=== PATIENT | female | born 1990 | race Caucasian/White ===

== ENCOUNTER → 2023-09-06 14:57 | Outpatient (REF) | payer OTHER, SELFPAY | LOC: PNTC 14:57 | PROVIDERS: ATTENDING PHYSICIAN Nurse Practitioner Women's Health | DX: Z36.87 Encounter for antenatal screening for uncertain dates (principal) | CPT/HCPCS: 76801; 76817 ==

== ENCOUNTER 2023-09-17 16:01 | Emergency (ER) | payer OTHER, SELFPAY ==
[2023-09-17 16:06] VITALS: BP 120/81
[2023-09-17 16:38] LABS: % Basophils 0.7 % (0-2); % Eosinophils 0.3 % (0-6); % Immature Granulocytes 0.3 % (0-0.5); % Lymphocytes 27.5 % (20.5-51.1); % Monocytes 6.6 % (1.7-9.3); % Neutrophils 64.6 % (42.2-75.2); Absolute Basophils 0.1 10^3/uL (0-0.2); Absolute Monocytes 0.5 10^3/uL (0.1-0.6); Absolute Neutrophils 4.8 10^3/uL (1.4-6.5); Hemoglobin 12.8 g/dL (12.0-16.0); Mean Corp Hgb Conc. 34.6 g/dL (33.0-37.0); Mean Corpuscular Hgb 28.4 pg (27.0-31.0); Mean Corpuscular Volume 82.2 fL (81.0-99.0); Mean Platelet Volume 8.5 fL (7.4-10.4); Nucleated Red Blood Cells % 0 %; Platelet Count 295 10^3/uL (130-400); Red Cell Dist. Width 12.3 % (11.5-14.5); White Blood Cell Count 7.4 10^3/uL (4.8-10.8)
[2023-09-17 16:39] LABS: Urine Albumin Negative (Neg - Trace); Urine Bilirubin Negative (Negative); Urine Character Clear (Clear); Urine Color Yellow; Urine Glucose Negative (Negative); Urine Ketone Negative (Negative); Urine Leukocyte Trace (Negative); Urine Nitrite Negative (Negative); Urine Occult Blood Negative (Negative); Urine Urobilinogen Negative (Neg - 1+); Urine pH 6.5 (5.0-9.0)
[2023-09-17 16:45] LABS: Erythrocyte Sed Rate 18 mm/hour (0-20)
[2023-09-17 16:53] LABS: ALT (SGPT) < 10 U/L (0-35); AST (SGOT) 21 U/L (14-36); Albumin 4.7 g/dl (3.5-5.0); Alkaline Phosphatase 51 U/L (38-126); Blood Urea Nitrogen 6 mg/dl (7-17); Calcium 10.4 mg/dl (8.4-10.2); Carbon Dioxide 23 mmol/L (22-30); Chloride 102 mmol/L (98-107); Glucose 85 mg/dl (70-99); Potassium 4.1 mmol/L (3.5-5.1); Sodium 133 mmol/L (135-145); Total Bilirubin 0.6 mg/dl (0.2-1.3); Total Protein 7.6 g/dl (6.3-8.2); eGFR > 60.00
[2023-09-17 16:53] LABS: Urine Bacteria Few (Negative); Urine Red Blood Cell None Seen /HPF (0-2); Urine White Cell 0-2 /HPF (0-5)
[2023-09-17 16:55] LABS: C-Reactive Protein < 5.00 mg/L (0.0-10.00)
--- NOTE | 2023-09-17 18:42 | ED.GENMED ---
History of Present Illness
General
Chief Complaint: Fever
Source: patient
Exam Limitations: none
Time Seen by Provider: 09/17/23 18:05
Travel History
Have you had any contact with someone who has COVID-19?: No
Do you have any symptoms of coronavirus? Fever > 100 degrees, chills, cough, shortness of breath, sore throat, loss of taste or smell, muscle aches, or headache?: No
History of Present Illness
History of Present Illness:
This is a 32 year old female that comes in with c/o fever. States that she has had a fever since Last Sunday. States that it is between 99-100.5. States that it is just not going away. States that she went to and they placed her on Amoxicillin.
States that she finished this and the fever continued. Patient called her INDUSTRIAL ECOLOGY TECHNICIAN yesterday and she was started on Keflex. States that she has had three doses. State that she is still running a fever today of 100.1. States that she is 8 week
and has had some nausea. States that she also had a headache. Denies any chills, chest pain, SOB, abd pain, Vomiting, diarrhea, dizziness, urinary burning.
Past History
Past History
ED Past Medical History: Asthma, Hypothyroidism, Psychiatric (Anxiety) and Other (IBS/Colitis. Migraines, POTS, anemia, Vicente-Danlos, eczema, Lupus, Lupus enteritis)
ED Past Surgical History: None
Patient has exhibited threatening behavior?: No
PSI?: No
Social History
Tobacco: Non-smoker
Alcohol: None
Drug: None
Personal:
Living: with family
Employment: Employed ([employer])
Family History
Family History: Other (Gallbladder disease); Negative Early CAD
Review of Systems
Review of Systems
All Other Systems: ROS reviewed and negative except as documented in HPI and ROS
Constitutional: Reports fever; Denies chills
EENT: Reports no symptoms
Respiratory: Reports no symptoms; Denies cough or trouble breathing
Cardiac: Reports no symptoms; Denies chest pain
ABD/GI: Reports nausea; Denies abdominal pain, vomiting or diarrhea
: Reports no symptoms; Denies dysuria, frequency or urgency
Musculoskeletal: Reports no symptoms
Skin: Reports no symptoms
Neurological: Reports headache; Denies dizzy
Psychiatric: Reports no symptoms
Phy Exam
General Physical Exam
General Presentation: well appearing and no apparent distress
General age: appears stated age
General Skin: warm and dry
General Habitus: normal
General Mental: alert
General Hydration: appears well hydrated
ENT Exam
ENT Exam: TM's normal, pharynx normal and neck supple
Eye Exam
Eye Exam: EOMI
Cardiovascular Exam
Cardiovascular Exam: regular rate/rhythm, no edema, no murmur and normal peripheral pulses
Pulmonary Exam
Pulmonary Exam: lungs clear, no respiratory distress, no rales, chest non tender, no crackles, no rhonchi, no wheezing and no cough
Gastrointestinal Exam
Gastrointestinal Exam: normal bowel sounds, non tender, soft, no organomegaly, no pulsatile mass and non distended
Musculoskeletal Exam
Musculoskeletal Exam: full ROM and no edema
Skin Exam
Skin Exam: normal color, warm/dry, no rash and no petechia
Psychiatric Exam
Psychiatric Exam: normal mood/affect
Course
Orders/Labs/Results
Orders:
Orders
09/17/23 16:18
Beta HCG Quantitative Urgent
Is this a screen?: No
CRP [C-Reactive Protein] Urgent
Complete Blood Count/With Diff Urgent
Comprehensive Metabolic Panel Urgent
Erythrocyte Sed Rate Urgent
Blood Culture Urgent
[facility] Source: Blood/Venous
Specimen Description:
09/17/23 16:23
UA Reflex to Culture [Urinalysis Reflex To Culture] Urgent
Date Specimen was Collected: 09/17/23
Time Specimen was Collected: 16:10
Urine Microscopic Reflex Cult Urgent
09/17/23 18:41
0.9% Sodium Chloride 1000 ml [Nss] 1,000 ml IV BOLUS
09/17/23 18:56
Lactic Acid Urgent
Blood Culture Q30M
[facility] Source: Blood/Venous
Specimen Description:
09/17/23 19:18
Acetaminophen [Tylenol] 650 mg .ROUTE .STK-MED ONE
09/17/23 19:21
Acetaminophen [Tylenol] 650 mg PO NOW STA
Abnormal Lab Results
09/17/23 09/17/23
16:18 16:23
Sodium 133 L mmol/L
(135-145)
BUN 6 L mg/dl
(7-17)
Creatinine 0.5 L mg/dL
(0.6-1.0)
Calcium 10.4 H mg/dl
(8.4-10.2)
Leukocyte Esterase Rfl Trace A
(Negative)
Urine Bacteria (Reflex) Few A
(Negative)
09/17/23 16:18
09/17/23 16:18
Sodium slightly low. Calcium slightly elevated. Urine negative for infection. CRP <5.0, HCG 812912.00, Lactic acid normal at 0.7
Vital Signs
Initial and Last Documented VS:
Initial Vital Signs
Temp Pulse Resp BP Pulse Ox
99.4 F 75 16 120/81 99
09/17/23 16:06 09/17/23 16:06 09/17/23 16:06 09/17/23 16:06 09/17/23 16:06
Last Documented Vital Signs
Temp Pulse Resp BP Pulse Ox
99.4 F 75 16 120/81 99
09/17/23 16:06 09/17/23 16:06 09/17/23 16:06 09/17/23 16:06 09/17/23 16:06
MDM/Problems Addressed
Differential Diagnosis Includes:
Viral syndrome. Lupus flare
MDM/Problems Addressed:
This is a 32 year old female that comes in with c/o fever since last Sunday. States that it is low between 99-100.5. Patient was seen at and given Amoxicillin. States that her fever continued so the INDUSTRIAL ECOLOGY TECHNICIAN Put her on Keflex. States that she is
still running a fever. States that she has had only 3 doses of the Keflex
Will get labs. give IV fluids and have patient follow up with her [employer] Solder Leveler. Explained that this could be a lupus flare but would rather they place her on steroids since they are following patient. Will get Lactic acid and it normal discharge.
Chronic conditions affecting care:
Lupus
Acute Exacerbation and/or Progression of Chronic Illness:
NA
*Pulse Oximetry
Patient hypoxic: no
*EKG
Interpreted by ED Provider?: NA
Rate: EKG- N/A
*[employer] Interpretation
Rate: [employer]- N/A
*Critical Care Note
Total Time (30-74mins, 75-104mins- exclusive of procedures): Not Applicable
ED Attending Note
-
Portions of this chart may have been created with voice recognition software.� Occasional wrong word or��sound alike� substitutions may have occurred due to the inherent limitations of voice recognition software.
Discharge Plan
Departure
Patient Disposition: Home (Routine Discharge)
Date of Disposition: 09/17/23
Time of Disposition: 19:34
Patient with high blood pressure during this ER visit?: No
Condition: Good
Covid-19: Not Applicable
Discharge Problem:
Fever
Instructions: Fever, Adult (DC)
Prescriptions:
No Action
Lexapro:
20 mg PO DAILY
levalbuterol tartrate 1 PUFF HFA aerosol inhaler
1 puff inhalation PRN PRN (Reason: cough wheezing allergies)
albuterol sulfate [Albuterol Sulfate HFA] 18 GM HFA aerosol inhaler
18 gm inhalation Q4HPRN PRN (Reason: asthma)
clonazepam 0.25 MG tablet
0.5 mg PO HS
fludrocortisone 0.1 MG tablet
0.1 mg PO DAILY
ondansetron 4 MG tablet,disintegrating
4 mg PO TIDPRN PRN (Reason: nausea/vomiting) Qty: 9 0RF
mometasone-formoterol [Dulera] 13 GM HFA aerosol inhaler
2 puff IH DAILY
prednisone 20 MG tablet
20 mg PO BID Qty: 10 0RF
diclofenac potassium 50 mg tablet
50 mg PO BID PRN (Reason: pain) Qty: 14 0RF
oxycodone-acetaminophen [Percocet] 5-325 mg Tablet
1 tab PO Q6HPRN PRN (Reason: pain) Qty: 7 0RF
ondansetron 4 mg Tablet,Disintegrating
4 mg PO BIDPRN PRN (Reason: nausea/vomiting) Qty: 10 0RF
lidocaine HCl [Lidocaine Viscous] 2 % solution
15 ml mucous membrane TID PRN (Reason: pain) Qty: 600 0RF
Cepacol Sore Throat (kim-men) 15-2.6 mg lozenge
1 jevon mucous membrane Q2H PRN (Reason: sore throat) Qty: 16 0RF
Referrals:
Asya Mosher, DO [Family Provider] - Follow up in 2-3 days
Activity Restrictions/Additional Instructions:
As discussed, your blood work is normal. Your Urine is negative for infection. Blood culture have been drawn and if they would come back positive you would be called. Please follow up with your [employer] S[employer] Leveler as they will decided if you need
steroids. Please increase your water intake to 8-8oz glasses daily. Follow up with the INDUSTRIAL ECOLOGY TECHNICIAN. Continue with Tylenol as needed for fever. IF YOU HAVE ANY OTHER CONCERNS PLEASE RETURN TO THE EMERGENCY ROOM.
Interventions
Interventions:
*Risk Screen - Suicide Last Done: 09/17/23 16:03
*General Assessment Last Done: 09/17/23 16:03
*Neglect/Abuse Screening Last Done: 09/17/23 16:03
Discharge Date and Time
Print Language: FRENCH
[2023-09-17] MEDS: NSS 1000 IV (19:00)
[2023-09-17 19:13] LABS: Lactic Acid 0.7 mmol/L (0.7-2.0)
[2023-09-17] MEDS: TYLENOL 650 MG PO (19:21)
== END 2023-09-17 21:05 | disposition home or self-care (01) ==
LOC: EMR 16:01
PROVIDERS: Clinical Nurse Specialist Family Health; Emergency Medicine; EMERGENCY PHYSICIAN Emergency Medicine; FAMILY PHYSICIAN Family Medicine
DX: O26.891 Other specified pregnancy related conditions, first trimester (principal); R50.9 Fever, unspecified; O99.611 Diseases of the digestive system complicating pregnancy, first trimester; R11.0 Nausea; Z3A.08 8 weeks gestation of pregnancy; R51.9 Headache, unspecified; O99.511 Diseases of the respiratory system complicating pregnancy, first trimester; J45.909 Unspecified asthma, uncomplicated; F41.9 Anxiety disorder, unspecified; K58.9 Irritable bowel syndrome, unspecified; E03.9 Hypothyroidism, unspecified; K52.9 Noninfective gastroenteritis and colitis, unspecified; G90.A Postural orthostatic tachycardia syndrome [POTS]; M32.9 Systemic lupus erythematosus, unspecified; Q79.60 Ehlers-Danlos syndrome, unspecified; L30.9 Dermatitis, unspecified; Z88.6 Allergy status to analgesic agent; Z91.011 Allergy to milk products; Z91.018 Allergy to other foods; Z91.048 Other nonmedicinal substance allergy status
CPT/HCPCS: 99284; 96360; 80053; 81003; 81015; 83605; 84702; 85025; 85652; 86140; 87040